=== PATIENT | male | born 1985 | race Caucasian/White ===

== ENCOUNTER → 2016-08-09 | Outpatient (CLI) | payer BC ==
[~2016-08-09] MED LIST: ASPIRIN (CHILDR81 MG PO; BRILINTA90 MG PO; COREG6.25 MG PO; LIPITOR80 MG PO; VASOTEC2.5 MG PO; ZOCOR20 MG PO
[2016-08-09 15:59] LABS: ALBUMIN 4.1 gm/dL (3.5-5.0); ALK PHOS 83 IU/L (33-138); ALT 35 IU/L (12-78); ANION GAP 12.9 (10.0-19.0); AST 18 IU/L (10-40); BLOOD UREA NITROGEN 17 mg/dL (6-24); CALCIUM 8.8 mg/dL (8.5-10.5); CHLORIDE 108 mMol/L (96-110); CO2 25 mMol/L (22-32); CREATININE 1.2 mg/dL (0.6-1.3); ESTIMATED GFR (MDRD EQUATION) > 60; POTASSIUM 3.9 mMol/L (3.7-5.1); SODIUM 142 mMol/L (135-145); TOTAL BILIRUBIN 0.6 mg/dL (0.0-1.5); TOTAL PROTEIN 7.9 g/dL (6.0-8.4)
== END | disposition disaster alternative care site (69) ==
LOC: LNHI 15:30
PROVIDERS: Internal Medicine Cardiovascular Disease
DX: I25.10 Atherosclerotic heart disease of native coronary artery without angina pectoris (principal); E78.2 Mixed hyperlipidemia

== ENCOUNTER → 2016-10-10 | Outpatient (CLI) | payer SELFPAY ==
--- NOTE | ~2016-10-10 | PUL ---
PATIENT'S NAME: LILIANA WHEELER [facility] AGE: 31 Y [address] ROOM: [place] [address] LOCATION: [facility] ADMIT DATE: 10/10/2016 Pulmonary DISCHARGE DATE: FAMILY PHYSICIAN: Nasir Cardona MD ATTENDING PHYSICIAN: Chelsea Reid NAME OF PROCEDURE: Home sleep test. DATE OF PROCEDURE: 10/10/16 TECH: MARIA GUADALUPE Escobar SUMMARY: Patient underwent home sleep testing using a type III device and was studied for 7 hours 21 minutes. There were 2 obstructive apneas and 9 hypopneas for an apnea/hypopnea index normal at 1.5 events per hour. Oxygen saturations ranged from 85%-92%. Heart rate ranged from 44-90 beats per minute. MD INDU THOMPSON/ /[id number] dtt: 10/29/16 0827 Michelle David E. dtd: 10/21/16 1627
== END | disposition disaster alternative care site (69) ==
LOC: GSLP 09-24 14:56
DX: R06.83 Snoring (principal); G47.33 Obstructive sleep apnea (adult) (pediatric); G47.36 Sleep related hypoventilation in conditions classified elsewhere; Z86.79 Personal history of other diseases of the circulatory system
CPT/HCPCS: G0399